=== PATIENT | male | born 1970 | race Caucasian/White ===

== ENCOUNTER 2021-12-01 08:58 | Emergency (ER) | payer BC ==
[~2021-12-01] VITALS: Ht 188 cm; Wt 136.4 kg
[2021-12-01] MEDS ORDERED: dexamethasone sod phosphate 10mg/ml inj IV STA (09:14)
[2021-12-01] MEDS ORDERED: normal saline 1000ML IV soln IV ONE (09:15)
[2021-12-01] MEDS ORDERED: CefTRIAXone 2gm/NS 100ml IVPB 100 ML IV ONE (09:15)
[2021-12-01] MEDS: acetaminophen 325mg tablet PO STA ×2 (09:35→09:36)
--- NOTE | 2021-12-01 09:54 | NUR ---
NS ORDER CHANGED PER SB ROSE. 1 LTR NS BOLUS ONLY.
[2021-12-01] MEDS ORDERED: magnesium 2GM in 50ml NS 50 ML IV ONE (09:55)
[2021-12-01] MEDS ORDERED: ALBUTEROL INHALER 1 PUFF/90 MCG INHALation IH ONE (09:55)
[2021-12-01 10:03] LABS: BASOPHILS % (AUTO) 0.4 % (0-1); EOSINOPHILS % (AUTO) 0.5 % (0-6); HEMATOCRIT 45.2 % (42.0-52.0); HEMOGLOBIN 15.3 g/dl (14.0-17.9); LYMPHOCYTES # (AUTO) 0.8 X10'3 (1.1-4.8); LYMPHOCYTES % (AUTO) 8.5 % (21-51); MEAN CORPUSCULAR HEMOGLOBIN 28.7 PG (27.0-31.0); MEAN CORPUSCULAR HGB CONC 33.8 g/dL (33.0-36.5); MEAN PLATELET VOLUME 8.1 FL (7.4-10.4); MONOCYTES # (AUTO) 0.9 X10'3 (0-0.9); NEUTROPHILS % (AUTO) 81.6 % (42-75); PLATELET COUNT 187 X10'3 (140-440); RED BLOOD COUNT 5.32 X10'6 (4.70-6.10); WHITE BLOOD COUNT 9.8 X10'3 (4.5-11.0)
[2021-12-01 10:09] LABS: D-DIMER 0.79 MG/L FEU (0-0.50)
[2021-12-01 10:12] LABS: ANION GAP 10 (8-16); BILIRUBIN,TOTAL 0.5 MG/DL (0.1-1.0); BLOOD UREA NITROGEN 13 MG/DL (7-18); BUN/CREATININE RATIO 10.5 (5.4-32.0); C-REACTIVE PROTEIN 4.44 MG/DL (0.0-0.5); CHLORIDE 103 MMOL/L (99-107); CREATININE 1.24 MG/DL (0.60-1.10); GLUCOSE 155 MG/DL (70-104); POTASSIUM 4.1 MMOL/L (3.5-5.1); SODIUM 141 MMOL/L (135-145); TOTAL CARBON DIOXIDE 28.2 MMOL/L (24-32); eGFR 61 ML/MIN
[2021-12-01 10:14] LABS: ALANINE AMINOTRANSFERASE 18 U/L (12-78); ALBUMIN 3.7 G/DL (3.4-5.0); ALBUMIN/GLOBULIN RATIO 0.8 (1.1-1.5); ALKALINE PHOSPHATASE 82 IU/L (46-116); ASPARTATE AMINO TRANSFERASE 15 U/L (10-37); CALCIUM 8.7 MG/DL (8.5-10.1); TOTAL PROTEIN 8.4 G/DL (6.4-8.2)
[2021-12-01] MEDS ORDERED: BEBTELOVIMAB 175 MG/2 ML VIAL IV ONE (10:30)
[2021-12-01] MEDS ORDERED: cloNIDine 0.1 mg tablet PO ONE (10:45)
[2021-12-01] MEDS ORDERED: ALBU6.7H9 INH (10:48)
[2021-12-01] MEDS ORDERED: ONDA4TAB12 PO (10:48)
[2021-12-01] MEDS ORDERED: LEVO500T90 PO (10:48)
[2021-12-01] MEDS ORDERED: DEXA4TAB67 PO (10:48)
[2021-12-01] MEDS ORDERED: BUDE180A INH (10:48)
[2021-12-01] MEDS ORDERED: ipratropium/albuterol 3ml nebule NEB ONE (12:20)
[2021-12-01] MEDS ORDERED: ipratropium/albuterol 3ml nebule ONE (12:27)
[2021-12-01 14:17] VITALS: BP 143/65
== END 2021-12-01 14:30 | disposition home or self-care (01) ==
LOC: ER 08:58 → EEVIPCON 08:58 → ER 14:30
DX: U07.1 COVID-19 (principal); J12.82 Pneumonia due to coronavirus disease 2019; I10 Essential (primary) hypertension; Z90.49 Acquired absence of other specified parts of digestive tract; Z98.890 Other specified postprocedural states; Z79.899 Other long term (current) drug therapy; Z88.8 Allergy status to other drugs, medicaments and biological substances
CPT/HCPCS: 36415; 71045; 80053; 83605; 84145; 85025; 85379; 86140; 87040; 87502; 87503; 87635; 93005; 94640; 96365; 96367; 96375; 99285; C9803; J0696; J1100; J3475; J7030; M0222; Q0222; 94760; A4615

== ENCOUNTER 2022-02-01 12:28 | Outpatient (CLI) | payer BC ==
[~2022-02-01 12:28] MED LIST: ALBU6.7H9 INH; BUDE180A INH; DEXA4TAB67 PO; ONDA4TAB12 PO
[2022-02-01] MEDS ORDERED: LISI5TAB22 PO (13:21)
[2022-02-01 13:54] LABS: CLARITY,URINE CLEAR (Clear); COLOR,URINE YELLOW (Yellow); GLUCOSE, URINE NEGATIVE (Neg); KETONES,URINE TRACE mg/dl (Neg); LEUKOCYTE ESTERASE ,URINE NEGATIVE (Neg); NITRITES, URINE NEGATIVE (Neg); OCCULT BLOOD,URINE NEGATIVE (Neg); PH,URINE 5.5 (4.8-8.0); PROTEIN,URINE NEGATIVE (Neg); UROBILINOGEN,URINE 0.2 E.U/dL (0.2-1.0)
[2022-02-01 13:57] LABS: UA COLLECTION TYPE CLN CATCH MIDSTREAM
[2022-02-01 14:00] LABS: BASOPHILS # (AUTO) 0.1 X10'3 (0-0.2); BASOPHILS % (AUTO) 0.8 % (0-1); EOSINOPHILS # (AUTO) 0.2 X10'3 (0-0.9); EOSINOPHILS % (AUTO) 3.4 % (0-6); LYMPHOCYTES # (AUTO) 1.9 X10'3 (1.1-4.8); LYMPHOCYTES % (AUTO) 28.3 % (21-51); MEAN CORPUSCULAR HEMOGLOBIN 29.4 PG (27.0-31.0); MEAN CORPUSCULAR HGB CONC 34.3 g/dL (33.0-36.5); MEAN CORPUSCULAR VOLUME 85.5 FL (78-98); MEAN PLATELET VOLUME 9.1 FL (7.4-10.4); MONOCYTES # (AUTO) 0.6 X10'3 (0-0.9); MONOCYTES % (AUTO) 8.9 % (2-12); NEUTROPHILS # (AUTO) 3.9 X10'3 (1.8-7.7); NEUTROPHILS % (AUTO) 58.6 % (42-75); PRE OP HEMATOCRIT 42.7 % (42.0-52.0); PRE OP HEMOGLOBIN 14.7 g/dL (14.0-17.9); PRE OP PLATELET COUNT 200 X10'3 (140-440); RED CELL DISTRIBUTION WIDTH 14.1 % (11.5-14.5)
[2022-02-01 14:11] LABS: ALBUMIN 3.4 G/DL (3.4-5.0); ALBUMIN/GLOBULIN RATIO 0.8 (1.1-1.5); ALKALINE PHOSPHATASE 87 IU/L (46-116); BLOOD UREA NITROGEN 19 MG/DL (7-18); BUN/CREATININE RATIO 15.2 (5.4-32.0); CALCIUM 8.9 MG/DL (8.5-10.1); CHLORIDE 103 MMOL/L (99-107); CREATININE 1.25 MG/DL (0.60-1.10); PRE OP ALT 32 U/L (30-65); PRE OP ANION GAP 10 (8-16); PRE OP AST 20 U/L (10-37); PRE OP BILIRUB, TOTAL 0.2 MG/DL (0.0-1.0); PRE OP POTASSIUM 4.3 MMOL/L (3.4-5.1); PRE OP SODIUM 138 MMOL/L (135-145); TOTAL CARBON DIOXIDE 25.3 MMOL/L (24-32); TOTAL PROTEIN 7.9 G/DL (6.4-8.2); eGFR 61 ML/MIN
[2022-02-01 14:12] LABS: PRE OP GLUCOSE 305 MG/DL (70-104)
[2022-02-01 15:25] LABS: HEMOGLOBIN A1C 8.6 % (4.5-6.2)
== END 2022-02-01 23:59 | disposition home or self-care (01) ==
LOC: LAB 12:28 → EDSTATUS 02-06 13:15
PROVIDERS: ATTEND Surgery
DX: K42.9 Umbilical hernia without obstruction or gangrene (principal)
CPT/HCPCS: 36415; 80053; 81003; 83036; 85025; 87811

== ENCOUNTER 2022-04-04 05:35 | Emergency (ER) | payer BC ==
[~2022-04-04] VITALS: Ht 188 cm; Wt 143.0 kg
[~2022-04-04 05:35] MED LIST changes: -ALBU6.7H9 INH; -BUDE180A INH; -DEXA4TAB67 PO; +LISI5TAB22 PO; -ONDA4TAB12 PO
[2022-04-04 05:44] VITALS: BP 200/110
== END 2022-04-04 06:50 | disposition home or self-care (01) ==
LOC: ER 05:36
DX: K42.0 Umbilical hernia with obstruction, without gangrene (principal); Z90.49 Acquired absence of other specified parts of digestive tract; Z98.890 Other specified postprocedural states; Z88.8 Allergy status to other drugs, medicaments and biological substances
CPT/HCPCS: 99281

== ENCOUNTER 2022-09-25 20:42 | Inpatient (IN) | payer BC ==
[~2022-09-25] VITALS: Ht 188 cm; Wt 140.0 kg
[2022-09-25 21:05] LABS: BASOPHILS # (AUTO) 0.1 X10'3 (0-0.2); BASOPHILS % (AUTO) 0.7 % (0-1); EOSINOPHILS # (AUTO) 0.1 X10'3 (0-0.9); EOSINOPHILS % (AUTO) 1.5 % (0-6); HEMATOCRIT 43.2 % (42.0-52.0); HEMOGLOBIN 14.7 g/dl (14.0-17.9); LYMPHOCYTES # (AUTO) 1.6 X10'3 (1.1-4.8); LYMPHOCYTES % (AUTO) 20.6 % (21-51); MEAN CORPUSCULAR HEMOGLOBIN 29.5 PG (27.0-31.0); MEAN CORPUSCULAR HGB CONC 34.1 g/dL (33.0-36.5); MEAN CORPUSCULAR VOLUME 86.4 FL (78-98); MEAN PLATELET VOLUME 8.6 FL (7.4-10.4); MONOCYTES # (AUTO) 0.7 X10'3 (0-0.9); MONOCYTES % (AUTO) 8.3 % (2-12); NEUTROPHILS # (AUTO) 5.5 X10'3 (1.8-7.7); NEUTROPHILS % (AUTO) 68.9 % (42-75); PLATELET COUNT 203 X10'3 (140-440); RED CELL DISTRIBUTION WIDTH 13.8 % (11.5-14.5)
[2022-09-25 21:20] LABS: ALANINE AMINOTRANSFERASE 34 U/L (12-78); ALBUMIN 3.5 G/DL (3.4-5.0); ALBUMIN/GLOBULIN RATIO 0.9 (1.1-1.5); ALKALINE PHOSPHATASE 105 IU/L (46-116); ANION GAP 11 (8-16); ASPARTATE AMINO TRANSFERASE 11 U/L (10-37); BILIRUBIN,TOTAL 0.4 MG/DL (0.1-1.0); BLOOD UREA NITROGEN 19 MG/DL (7-18); BUN/CREATININE RATIO 13.6 (10.0-20.0); CALCIUM 8.3 MG/DL (8.5-10.1); CHLORIDE 102 MMOL/L (99-107); SODIUM 135 MMOL/L (135-145); TOTAL CARBON DIOXIDE 22.3 MMOL/L (24-32); TOTAL PROTEIN 7.4 G/DL (6.4-8.2); eGFR 53 ML/MIN
[2022-09-25 21:31] LABS: POTASSIUM 4.1 MMOL/L (3.5-5.1)
[2022-09-25 21:32] LABS: GLUCOSE 490 MG/DL (70-104)
--- NOTE | 2022-09-25 22:08 | NUR ---
stroke RN at bedside tele monitor in front of patient
[2022-09-25] MEDS ORDERED: normal saline 1000ml 1,000 ML IV ONE (22:10)
[2022-09-25] MEDS ORDERED: meclizine 12.5mg tablet PO ONE (22:10)
[2022-09-25] MEDS ORDERED: iohexol 350MG/ML 100ml bottle IV ONE (22:15)
[2022-09-25] MEDS ORDERED: DULA1.5P SQ (23:53)
[2022-09-26] MEDS ORDERED: acetaminophen 325mg tablet PO ONE (00:30)
[2022-09-26 00:53] LABS: CLARITY,URINE CLEAR (Clear); COLOR,URINE YELLOW (Yellow); GLUCOSE, URINE >=1000 mg/dl (Neg); KETONES,URINE NEGATIVE (Neg); LEUKOCYTE ESTERASE ,URINE NEGATIVE (Neg); NITRITES, URINE NEGATIVE (Neg); OCCULT BLOOD,URINE NEGATIVE (Neg); PROTEIN,URINE NEGATIVE (Neg); UROBILINOGEN,URINE 0.2 E.U/dL (0.2-1.0)
[2022-09-26 00:57] LABS: UA COLLECTION TYPE CLN CATCH MIDSTREAM
[2022-09-26 01:18] LABS: RBC,URINE 0-2 /HPF (0-2); WBC,URINE 0-4 /HPF (0-4)
[2022-09-26 01:19] LABS: BACTERIA,URINE NONE SEEN /HPF (Neg); MUCUS STRANDS FEW /LPF (Neg); SQUAMOUS EPITHELIAL CELL,UR NONE SEEN /LPF (FEW)
[2022-09-26] MEDS ORDERED: mag hydrox/Alum hydrox/simeth 30ml oral suspension PO PRN (03:15)
[2022-09-26] MEDS ORDERED: acetaminophen 325mg tablet PO PRN (03:15)
[2022-09-26] MEDS ORDERED: PERFLUTREN PROTEIN-A MICROSPHR (Optison) 0.22 MG/ML 3ML VIAL IV PRN (03:15)
[2022-09-26] MEDS ORDERED: magnesium hydroxide 30ml (MOM) UD suspension PO PRN (03:15)
[2022-09-26] MEDS ORDERED: ondansetron/PF 4mg/2ml inj IV PRN (03:15)
[2022-09-26] MEDS ORDERED: glucagon, human recombinant 1mg kit SUBCUT PRN (03:20)
[2022-09-26] MEDS ORDERED: MESSAGE TO PHARMACY PO ONE (03:20)
[2022-09-26] MEDS ORDERED: aspirin 81mg, enteric-coated 1 TAB TABLET.DR PO ONE (03:20)
[2022-09-26] MEDS ORDERED: DEXTROSE 15 GM of carb/4 tabs (each vial/BOTTLE has 4 tablets) PO PRN ×2 (03:20)
[2022-09-26] MEDS ORDERED: dextrose 50%-water 50ml dispensing syringe IV PRN ×2 (03:20)
[2022-09-26 04:10] LABS: HEMOGLOBIN A1C 10.3 % (4.5-6.2)
[2022-09-26 04:11] LABS: CHOL/HDL RATIO 6.3 (0.00-4.99); CHOLESTEROL 177 MG/DL (0-200); HDL CHOLESTEROL 28 MG/DL (35-60); LDL CHOLESTEROL 100 MG/DL (50-100); TRIGLYCERIDES 271 MG/DL (20-135)
[2022-09-26] MEDS ORDERED: docusate sod 100mg capsule PO SCH (08:00)
[2022-09-26] MEDS ORDERED: aspirin 81mg, enteric-coated 1 TAB TABLET.DR PO SCH (08:00)
[2022-09-26] MEDS: insulin Lispro (HumaLOG) vial - multi-dose SQ SCH ×2 (09:27→12:54)
[2022-09-26] MEDS ORDERED: LISI40TA13 PO (15:36)
[2022-09-26] MEDS ORDERED: ATOR40TA PO (15:36)
[2022-09-26 16:02] VITALS: BP 134/78
== END 2022-09-26 16:09 | disposition home or self-care (01) | DRG 149 ==
LOC: ER 20:42 → ED HOLD 09-26 03:20 → UNDOADMIN 09-26 03:22 → UNDODISIN 09-26 16:09
PROVIDERS: ADMIT Internal Medicine; ATTEND Family Medicine
PROC: B3251ZZ Computerized Tomography (CT Scan) of Bilateral Common Carotid Arteries using Low Osmolar Contrast (ICD-10-PCS; principal; 2022-09-25)
PROC: B32G1ZZ Computerized Tomography (CT Scan) of Bilateral Vertebral Arteries using Low Osmolar Contrast (ICD-10-PCS; 2022-09-25)
PROC: B32R1ZZ Computerized Tomography (CT Scan) of Intracranial Arteries using Low Osmolar Contrast (ICD-10-PCS; 2022-09-25)
PROC: B3281ZZ Computerized Tomography (CT Scan) of Bilateral Internal Carotid Arteries using Low Osmolar Contrast (ICD-10-PCS; 2022-09-25)
DX: H81.13 Benign paroxysmal vertigo, bilateral (principal); G43.909 Migraine, unspecified, not intractable, without status migrainosus; M10.9 Gout, unspecified; E78.5 Hyperlipidemia, unspecified; E11.22 Type 2 diabetes mellitus with diabetic chronic kidney disease; I12.9 Hypertensive chronic kidney disease with stage 1 through stage 4 chronic kidney disease, or unspecified chronic kidney disease; N18.9 Chronic kidney disease, unspecified; R26.9 Unspecified abnormalities of gait and mobility; Z79.82 Long term (current) use of aspirin; Z88.8 Allergy status to other drugs, medicaments and biological substances; Z90.49 Acquired absence of other specified parts of digestive tract; Z86.16 Personal history of COVID-19; Z79.899 Other long term (current) drug therapy
CPT/HCPCS: 36415; 70450; 70496; 70498; 70551; 71045; 80053; 80061; 81001; 82948; 83036; 83880; 84484; 85025; 92508; 92616; 93306; 99285; G0378; J3490; J7030; Q9967

== ENCOUNTER 2023-04-21 06:39 | Outpatient (CLI) | payer BC ==
[~2023-04-21 06:39] MED LIST changes: +DULA1.5P SQ; -LISI5TAB22 PO
[2023-04-21 07:18] LABS: BASOPHILS # (AUTO) 0.1 X10'3 (0-0.2); EOSINOPHILS # (AUTO) 0.2 X10'3 (0-0.9); EOSINOPHILS % (AUTO) 1.9 % (0-6); HEMATOCRIT 43.4 % (42.0-52.0); HEMOGLOBIN 14.7 g/dl (14.0-17.9); LYMPHOCYTES # (AUTO) 2.1 X10'3 (1.1-4.8); LYMPHOCYTES % (AUTO) 23.8 % (21-51); MEAN CORPUSCULAR HEMOGLOBIN 29.4 PG (27.0-31.0); MEAN CORPUSCULAR HGB CONC 33.9 g/dL (33.0-36.5); MEAN CORPUSCULAR VOLUME 86.9 FL (78-98); MEAN PLATELET VOLUME 8.5 FL (7.4-10.4); MONOCYTES # (AUTO) 0.7 X10'3 (0-0.9); MONOCYTES % (AUTO) 8.2 % (2-12); NEUTROPHILS # (AUTO) 5.7 X10'3 (1.8-7.7); NEUTROPHILS % (AUTO) 65.1 % (42-75); PLATELET COUNT 207 X10'3 (140-440); RED BLOOD COUNT 4.99 X10'6 (4.70-6.10); RED CELL DISTRIBUTION WIDTH 13.7 % (11.5-14.5); WHITE BLOOD COUNT 8.7 X10'3 (4.5-11.0)
[2023-04-21 07:55] LABS: ALANINE AMINOTRANSFERASE 19 U/L (12-78); ALBUMIN 3.7 G/DL (3.4-5.0); ALBUMIN/GLOBULIN RATIO 0.7 (1.1-1.5); ALKALINE PHOSPHATASE 71 IU/L (46-116); ANION GAP 10 (8-16); ASPARTATE AMINO TRANSFERASE 21 U/L (10-37); BILIRUBIN,TOTAL 0.3 MG/DL (0.1-1.0); BLOOD UREA NITROGEN 19 MG/DL (7-18); BUN/CREATININE RATIO 15.4 (10.0-20.0); CALCIUM 9.3 MG/DL (8.5-10.1); CHLORIDE 105 MMOL/L (99-107); CHOL/HDL RATIO 4.7 (0.00-4.99); CHOLESTEROL 149 MG/DL (0-200); CREATININE 1.23 MG/DL (0.60-1.10); GLUCOSE 146 MG/DL (70-104); HDL CHOLESTEROL 32 MG/DL (35-60); LDL CHOLESTEROL 87 MG/DL (50-100); POTASSIUM 3.7 MMOL/L (3.5-5.1); SODIUM 140 MMOL/L (135-145); TOTAL CARBON DIOXIDE 24.7 MMOL/L (24-32); TOTAL PROTEIN 8.8 G/DL (6.4-8.2); TRIGLYCERIDES 230 MG/DL (20-135); eGFR 61 ML/MIN
== END 2023-04-21 23:59 | disposition home or self-care (01) ==
LOC: LAB 06:39
PROVIDERS: ATTEND Physician Assistant
DX: E11.65 Type 2 diabetes mellitus with hyperglycemia (principal); I10 Essential (primary) hypertension; E78.5 Hyperlipidemia, unspecified
CPT/HCPCS: 36415; 80053; 80061; 85025

== ENCOUNTER 2023-04-29 02:09 | Emergency (ER) | payer BC ==
[~2023-04-29] VITALS: Ht 188 cm; Wt 143.2 kg
[2023-04-29 02:13] VITALS: BP 122/75; TEMP 98.1
[2023-04-29] MEDS ORDERED: ipratropium/albuterol 3ml nebule NEB ONE (02:15)
[2023-04-29] MEDS ORDERED: dexamethasone 4mg/ml inj IM ONE (02:20)
[2023-04-29 02:26] VITALS: PULSE 97; RESP 16
[2023-04-29 02:32] VITALS: PULSE 70; RESP 16; O2SAT 97
[2023-04-29] MEDS ORDERED: ALBU18HF2 INH (03:37)
--- NOTE | 2023-04-29 06:35 | NUR ---
PT DISCHARGED AT 1457, JUST NOW TAKEN OUT OF COMPUTER.
== END 2023-04-29 06:34 | disposition home or self-care (01) ==
LOC: ER 02:10
DX: J45.909 Unspecified asthma, uncomplicated (principal); R06.02 Shortness of breath; E11.9 Type 2 diabetes mellitus without complications; Z88.8 Allergy status to other drugs, medicaments and biological substances; Z79.899 Other long term (current) drug therapy; Z90.49 Acquired absence of other specified parts of digestive tract
CPT/HCPCS: 94640; 96372; 99283; J1100; 94760; A4620

== ENCOUNTER 2023-09-28 18:22 | Emergency (ER) | payer BC ==
[~2023-09-28] VITALS: Ht 188 cm; Wt 88.2 kg
[~2023-09-28 18:22] MED LIST changes: +ALBU18HF2 INH
[2023-09-28 18:35] VITALS: BP 135/98; PULSE 103; RESP 16; TEMP 98.3; O2SAT 98
[2023-09-28] MEDS ORDERED: PRED20TA PO (18:43)
[2023-09-28] MEDS ORDERED: AMOX-100 PO (18:43)
[2023-09-28] MEDS: CefTRIAXone 1000mg IM Kit (w/lidocaine diluent) IM ONE (18:45)
[2023-09-28] MEDS: dexamethasone sod phosphate 10mg/ml inj IM STA (18:45)
== END 2023-09-28 19:00 | disposition home or self-care (01) ==
LOC: ER 18:23
DX: J03.90 Acute tonsillitis, unspecified (principal); E11.9 Type 2 diabetes mellitus without complications; Z90.49 Acquired absence of other specified parts of digestive tract; Z98.890 Other specified postprocedural states; Z88.8 Allergy status to other drugs, medicaments and biological substances; Z79.899 Other long term (current) drug therapy
CPT/HCPCS: 96372; 99284; J0696; J1100

== ENCOUNTER 2023-10-14 06:30 | Outpatient (CLI) | payer BC ==
[2023-10-14 06:51] LABS: BASOPHILS # (AUTO) 0.1 X10'3 (0-0.2); BASOPHILS % (AUTO) 0.8 % (0-1); EOSINOPHILS # (AUTO) 0.2 X10'3 (0-0.9); EOSINOPHILS % (AUTO) 1.6 % (0-6); HEMATOCRIT 40.8 % (42.0-52.0); HEMOGLOBIN 13.5 g/dl (14.0-17.9); LYMPHOCYTES # (AUTO) 2.1 X10'3 (1.1-4.8); LYMPHOCYTES % (AUTO) 21.4 % (21-51); MEAN CORPUSCULAR HEMOGLOBIN 28.3 PG (27.0-31.0); MEAN CORPUSCULAR HGB CONC 33.1 g/dL (33.0-36.5); MEAN CORPUSCULAR VOLUME 85.5 FL (78-98); MEAN PLATELET VOLUME 7.6 FL (7.4-10.4); MONOCYTES # (AUTO) 0.7 X10'3 (0-0.9); MONOCYTES % (AUTO) 7.4 % (2-12); NEUTROPHILS # (AUTO) 6.6 X10'3 (1.8-7.7); NEUTROPHILS % (AUTO) 68.8 % (42-75); PLATELET COUNT 229 X10'3 (140-440); RED BLOOD COUNT 4.78 X10'6 (4.70-6.10); RED CELL DISTRIBUTION WIDTH 14.2 % (11.5-14.5); WHITE BLOOD COUNT 9.6 X10'3 (4.5-11.0)
[2023-10-14 07:04] LABS: ALANINE AMINOTRANSFERASE 10 U/L (12-78); ALBUMIN 3.4 G/DL (3.4-5.0); ALBUMIN/GLOBULIN RATIO 0.7 (1.1-1.5); ALKALINE PHOSPHATASE 63 IU/L (46-116); ANION GAP 10 (8-16); ASPARTATE AMINO TRANSFERASE 6 U/L (10-37); BILIRUBIN,TOTAL 0.4 MG/DL (0.1-1.0); BLOOD UREA NITROGEN 22 MG/DL (7-18); BUN/CREATININE RATIO 17.9 (10.0-20.0); CALCIUM 8.7 MG/DL (8.5-10.1); CHLORIDE 108 MMOL/L (99-107); CHOL/HDL RATIO 4.3 (0.00-4.99); CHOLESTEROL 124 MG/DL (0-200); CREATININE 1.23 MG/DL (0.60-1.10); GLUCOSE 115 MG/DL (70-104); HDL CHOLESTEROL 29 MG/DL (35-60); LDL CHOLESTEROL 83 MG/DL (50-100); POTASSIUM 3.9 MMOL/L (3.5-5.1); SODIUM 142 MMOL/L (135-145); TOTAL CARBON DIOXIDE 23.7 MMOL/L (24-32); TOTAL PROTEIN 8.2 G/DL (6.4-8.2); TRIGLYCERIDES 120 MG/DL (20-135); eGFR 61 ML/MIN
[2023-10-17] MEDS ORDERED: TIRZ7.5P SQ (09:47)
[2023-10-17] MEDS ORDERED: EMPA25TA PO (09:47)
== END 2023-10-14 23:59 | disposition home or self-care (01) ==
LOC: LAB 06:30
PROVIDERS: ATTEND Physician Assistant
DX: E11.65 Type 2 diabetes mellitus with hyperglycemia (principal); I10 Essential (primary) hypertension; E78.5 Hyperlipidemia, unspecified
CPT/HCPCS: 36415; 80053; 80061; 85025

== ENCOUNTER 2023-10-23 09:12 | Day surgery (SDC) | payer BC ==
[2023-10-21] MEDS: cefazolin 2gm/D5W 100mL 100 ML IV ONE (05:30)
[2023-10-21] MEDS: famotidine 20mg tablet PO ONE (05:30)
[2023-10-21] MEDS: ringers solution, lacted 1,000 ML IV SCH (05:30)
[2023-10-23] VITALS (15 sets, daily range): BP systolic 141–180; BP diastolic 74–105; PULSE 49–64; RESP 12–21; TEMP 97–97.2; O2SAT 92–97
[~2023-10-23] VITALS: Ht 167.6 cm; Wt 134.0 kg
[2023-10-23] MEDS: famotidine 20mg tablet PO ONE (05:30)
[2023-10-23] MEDS: cefazolin 2gm/D5W 100mL 100 ML IV ONE (05:30)
[~2023-10-23 09:12] MED LIST changes: -ALBU18HF2 INH; -DULA1.5P SQ; +EMPA25TA PO; +TIRZ7.5P SQ
[2023-10-23] MEDS: ringers solution, lacted 1,000 ML IV SCH (10:02)
[2023-10-23] MEDS ORDERED: BUPIVAcaine 0.25% w/Epi /PF 30ml vial ONE (11:36)
[2023-10-23 12:01] LABS: BILIRUBIN,URINE NEGATIVE (Neg); CLARITY,URINE CLEAR (Clear); COLOR,URINE YELLOW (Yellow); GLUCOSE, URINE >=1000 mg/dl (Neg); KETONES,URINE NEGATIVE (Neg); LEUKOCYTE ESTERASE ,URINE NEGATIVE (Neg); NITRITES, URINE NEGATIVE (Neg); OCCULT BLOOD,URINE NEGATIVE (Neg); PH,URINE 5.5 (4.8-8.0); PROTEIN,URINE NEGATIVE (Neg); UROBILINOGEN,URINE 0.2 E.U/dL (0.2-1.0)
[2023-10-23 12:05] LABS: UA COLLECTION TYPE CLN CATCH MIDSTREAM
[2023-10-23] MEDS ORDERED: midazolam 1 mg/ML 2ml injection ONE (12:08)
[2023-10-23] MEDS ORDERED: propofol inj 20 ML IV ONE (12:08)
[2023-10-23] MEDS ORDERED: fentaNYL /PF 50mcg/ml 5ml ampule ONE (12:08)
[2023-10-23] MEDS ORDERED: rocuronium 10mg/ml inj IV ONE (12:09)
[2023-10-23 12:10] LABS: SQUAMOUS EPITHELIAL CELL,UR FEW /LPF (FEW)
[2023-10-23] MEDS ORDERED: BUPIVAcaine 2.5mg/ml inj 50ml vial (contains preservative) ONE (12:10)
[2023-10-23 12:11] LABS: BACTERIA,URINE NONE SEEN /HPF (Neg); RBC,URINE NONE SEEN /HPF (0-2); WBC,URINE 0-4 /HPF (0-4)
[2023-10-23] MEDS ORDERED: sevoflurane 250ml liquid IH ONE (13:18)
[2023-10-23] MEDS ORDERED: ringers solution, lacted 1,000 ML IV SCH (13:20)
[2023-10-23] MEDS ORDERED: morphine 2 MG/ML inj. syringe IV PRN (13:20)
[2023-10-23] MEDS ORDERED: meperidine/PF 25mg/ml syringe IV PRN ×3 (13:20)
[2023-10-23] MEDS ORDERED: morphine 4 MG/ML inj SYRINge IV PRN (13:20)
[2023-10-23] MEDS ORDERED: proCHLORperazine 10 MG/2 ml inj IV PRN (13:20)
[2023-10-23] MEDS: BUPIVAcaine/PF 2.5 mg/ml (0.25%) 30ml vial IJ ONE (13:31)
[2023-10-23] MEDS ORDERED: bacitracin 15gm ointment TP ONE (14:01)
[2023-10-23] MEDS ORDERED: dexamethasone sod phosphate 4mg/ml inj. ONE (14:02)
[2023-10-23] MEDS ORDERED: ondansetron/PF 4mg/2ml inj ONE (14:14)
[2023-10-23] MEDS ORDERED: acetaminophen 1,000mg/100ml IV 100 ML IV ONE (14:14)
[2023-10-23] MEDS ORDERED: glycopyrrolate 0.2mg/ml inj ONE (14:45)
[2023-10-23] MEDS ORDERED: neostigmine methylsulfate 1 MG/ML 10ml vial ONE (14:45)
[2023-10-23] MEDS: bacitracin 15gm ointment TP ONE (14:57)
[2023-10-23] MEDS: ondansetron/PF 4mg/2ml inj IV PRN (15:40)
== END 2023-10-23 17:50 | disposition home or self-care (01) ==
LOC: PAS 09:12
PROVIDERS: ATTEND Surgery
DX: K42.0 Umbilical hernia with obstruction, without gangrene (principal); E11.9 Type 2 diabetes mellitus without complications; Z79.899 Other long term (current) drug therapy; Z98.890 Other specified postprocedural states; Z20.822 Contact with and (suspected) exposure to COVID-19; Z90.49 Acquired absence of other specified parts of digestive tract
CPT/HCPCS: 49592; 81001; 82948; C1781; J0131; J0690; J1100; J2250; J2405; J2704; J2710; J3010; J3490; J7030; J7120; Z7506; Z7508; Z7512; A4615; A4618; A6258; A6449; A7000; S0020

== ENCOUNTER 2023-11-19 09:07 | Emergency (ER) | payer BC ==
[~2023-11-19] VITALS: Ht 188 cm; Wt 131.1 kg
[2023-11-19 10:20] LABS: BASOPHILS # (AUTO) 0.1 X10'3 (0-0.2); BASOPHILS % (AUTO) 0.7 % (0-1); EOSINOPHILS # (AUTO) 0.2 X10'3 (0-0.9); EOSINOPHILS % (AUTO) 2.3 % (0-6); HEMATOCRIT 42.9 % (42.0-52.0); HEMOGLOBIN 14.1 g/dl (14.0-17.9); LYMPHOCYTES # (AUTO) 2.1 X10'3 (1.1-4.8); LYMPHOCYTES % (AUTO) 22.8 % (21-51); MEAN CORPUSCULAR HEMOGLOBIN 28.2 PG (27.0-31.0); MEAN CORPUSCULAR HGB CONC 32.9 g/dL (33.0-36.5); MEAN CORPUSCULAR VOLUME 85.5 FL (78-98); MONOCYTES # (AUTO) 0.7 X10'3 (0-0.9); MONOCYTES % (AUTO) 8.2 % (2-12); PLATELET COUNT 230 X10'3 (140-440); RED BLOOD COUNT 5.02 X10'6 (4.70-6.10); RED CELL DISTRIBUTION WIDTH 14.4 % (11.5-14.5); WHITE BLOOD COUNT 9.1 X10'3 (4.5-11.0)
[2023-11-19 10:27] LABS: PROTHROMBIN TIME 10.6 SECONDS (9.0-12.0)
[2023-11-19 10:32] LABS: ALANINE AMINOTRANSFERASE 15 U/L (12-78); ALBUMIN 3.5 G/DL (3.4-5.0); ALBUMIN/GLOBULIN RATIO 0.7 (1.1-1.5); ALKALINE PHOSPHATASE 79 IU/L (46-116); ANION GAP 6 (8-16); ASPARTATE AMINO TRANSFERASE 13 U/L (10-37); BILIRUBIN,TOTAL 0.6 MG/DL (0.1-1.0); BLOOD UREA NITROGEN 15 MG/DL (7-18); CALCIUM 9.1 MG/DL (8.5-10.1); CHLORIDE 105 MMOL/L (99-107); CREATININE 1.25 MG/DL (0.60-1.10); GLUCOSE 121 MG/DL (70-104); POTASSIUM 3.7 MMOL/L (3.5-5.1); SODIUM 137 MMOL/L (135-145); TOTAL CARBON DIOXIDE 26.5 MMOL/L (24-32); TOTAL PROTEIN 8.2 G/DL (6.4-8.2); URIC ACID 7.1 MG/DL (3.5-7.2); eCRCL 79 ML/MIN; eGFR 60 ML/MIN
[2023-11-19] MEDS ORDERED: ketorolac trometh. 30mg/ml inj. IM ONE (11:55)
[2023-11-19] MEDS ORDERED: COLC0.6C3 PO (11:58)
[2023-11-19] MEDS ORDERED: ALLO100T PO (11:58)
[2023-11-19] MEDS: dexamethasone sod phosphate 10mg/ml inj IM STA (12:30)
[2023-11-19] MEDS: ketorolac tromethamine 15mg/ml inj. IM ONE (12:32)
[2023-11-19 13:32] VITALS: BP 152/103; PULSE 62; RESP 18; TEMP 98.6; O2SAT 98
== END 2023-11-19 13:39 | disposition home or self-care (01) ==
LOC: ER 09:07
DX: R60.0 Localized edema (principal); M79.661 Pain in right lower leg; E11.9 Type 2 diabetes mellitus without complications; Z88.8 Allergy status to other drugs, medicaments and biological substances; Z79.899 Other long term (current) drug therapy; Z90.49 Acquired absence of other specified parts of digestive tract
CPT/HCPCS: 36415; 80053; 84550; 85025; 85610; 93971; 96372; 99285; J1100; J1885

== ENCOUNTER 2024-02-22 14:19 | Emergency (ER) | payer BC ==
[~2024-02-22] VITALS: Ht 188 cm; Wt 130.0 kg
[~2024-02-22 14:19] MED LIST changes: +COLC0.6C3 PO
[2024-02-22] MEDS: predniSONE 20 mg tablet PO ONE (14:36)
[2024-02-22 14:47] VITALS: PULSE 62; RESP 18; O2SAT 97
[2024-02-22] MEDS: ipratropium/albuterol 3ml nebule NEB ONE (14:47)
[2024-02-22 14:56] VITALS: PULSE 66; RESP 18; O2SAT 97
[2024-02-22] MEDS ORDERED: PRED20TA PO (15:08)
[2024-02-22] MEDS ORDERED: ALBU18HF2 INH (15:08)
[2024-02-22] MEDS ORDERED: BUDE10.2 INH (15:08)
[2024-02-22 15:13] VITALS: BP 137/95; PULSE 61; RESP 18; TEMP 98; O2SAT 97
== END 2024-02-22 15:15 | disposition home or self-care (01) ==
LOC: ER 14:19
DX: J40 Bronchitis, not specified as acute or chronic (principal); E11.9 Type 2 diabetes mellitus without complications; Z88.8 Allergy status to other drugs, medicaments and biological substances; Z79.899 Other long term (current) drug therapy; Z90.49 Acquired absence of other specified parts of digestive tract
CPT/HCPCS: 71045; 93005; 94640; 99283; J7512; 94760

== ENCOUNTER 2024-07-18 12:32 | Emergency (ER) | payer BC ==
[~2024-07-18] VITALS: Ht 188 cm; Wt 136.4 kg
[~2024-07-18 12:32] MED LIST changes: +ALBU18HF2 INH; +BUDE10.2 INH
[2024-07-18 12:34] VITALS: BP 131/98; PULSE 72; O2SAT 95
[2024-07-18 12:55] LABS: BASOPHILS % (AUTO) 0.4 % (0-1); EOSINOPHILS # (AUTO) 0.2 X10'3 (0-0.9); HEMATOCRIT 46.7 % (42.0-52.0); HEMOGLOBIN 15.8 g/dl (14.0-17.9); LYMPHOCYTES # (AUTO) 1.2 X10'3 (1.1-4.8); LYMPHOCYTES % (AUTO) 17.4 % (21-51); MEAN CORPUSCULAR HEMOGLOBIN 29.8 PG (27.0-31.0); MEAN CORPUSCULAR HGB CONC 33.8 g/dL (33.0-36.5); MEAN PLATELET VOLUME 7.9 FL (7.4-10.4); MONOCYTES # (AUTO) 0.8 X10'3 (0-0.9); MONOCYTES % (AUTO) 11.4 % (2-12); NEUTROPHILS # (AUTO) 4.6 X10'3 (1.8-7.7); NEUTROPHILS % (AUTO) 67.8 % (42-75); PLATELET COUNT 168 X10'3 (140-440); RED CELL DISTRIBUTION WIDTH 13.8 % (11.5-14.5); WHITE BLOOD COUNT 6.7 X10'3 (4.5-11.0)
[2024-07-18] MEDS ORDERED: iohexol 300mg/ml 100ml inj. ONE (13:00)
[2024-07-18] MEDS: normal saline 1000ml 1,000 ML IV ONE (13:03)
[2024-07-18] MEDS: metoclopramide 5 mg/ml inj IV ONE (13:27)
[2024-07-18 13:35] LABS: ALANINE AMINOTRANSFERASE 30 U/L (12-78); ALBUMIN 3.3 G/DL (3.4-5.0); ALBUMIN/GLOBULIN RATIO 0.8 (1.1-1.5); ALKALINE PHOSPHATASE 90 IU/L (46-116); ANION GAP 11 (8-16); ASPARTATE AMINO TRANSFERASE 22 U/L (10-37); BILIRUBIN,TOTAL 0.6 MG/DL (0.1-1.0); BLOOD UREA NITROGEN 16 MG/DL (7-18); BUN/CREATININE RATIO 16.8 (10.0-20.0); CALCIUM 8.1 MG/DL (8.5-10.1); CHLORIDE 108 MMOL/L (99-107); CREATININE 0.95 MG/DL (0.60-1.10); GLUCOSE 136 MG/DL (70-104); LIPASE 23 U/L (16-77); POTASSIUM 3.7 MMOL/L (3.5-5.1); SODIUM 140 MMOL/L (135-145); TOTAL CARBON DIOXIDE 21.4 MMOL/L (24-32); TOTAL PROTEIN 7.7 G/DL (6.4-8.2); eCRCL 102 ML/MIN; eGFR 82 ML/MIN
[2024-07-18 14:33] VITALS: RESP 16
[2024-07-18] MEDS: metroNIDAZOLE 500mg tablet PO ONE (14:33)
[2024-07-18] MEDS: ciprofloxacin 250mg tablet PO ONE (14:33)
[2024-07-18] MEDS: ketorolac trometh 15mg/ml vial 15 MG/ML ML IV ONE (14:33)
[2024-07-18] MEDS ORDERED: CIPR-202 PO (15:17)
[2024-07-18] MEDS ORDERED: METR-159 PO (15:17)
[2024-07-18] MEDS ORDERED: HYDR-3965 PO (15:17)
[2024-07-18] MEDS ORDERED: ONDA-243 PO (15:17)
[2024-07-18 15:24] LABS: BILIRUBIN,URINE NEGATIVE (Neg); CLARITY,URINE CLEAR (Clear); COLOR,URINE YELLOW (Yellow); GLUCOSE, URINE NEGATIVE (Neg); KETONES,URINE NEGATIVE (Neg); LEUKOCYTE ESTERASE ,URINE NEGATIVE (Neg); NITRITES, URINE NEGATIVE (Neg); OCCULT BLOOD,URINE NEGATIVE (Neg); PH,URINE 5.5 (4.8-8.0); PROTEIN,URINE NEGATIVE (Neg); UROBILINOGEN,URINE 0.2 E.U/dL (0.2-1.0)
[2024-07-18 15:25] LABS: UA COLLECTION TYPE CLN CATCH MIDSTREAM
[2024-07-18 15:35] VITALS: TEMP 98
== END 2024-07-18 15:39 | disposition home or self-care (01) ==
LOC: ER 12:33
DX: K57.32 Diverticulitis of large intestine without perforation or abscess without bleeding (principal); E11.9 Type 2 diabetes mellitus without complications; Z88.8 Allergy status to other drugs, medicaments and biological substances; Z90.49 Acquired absence of other specified parts of digestive tract; Z98.890 Other specified postprocedural states
CPT/HCPCS: 36415; 74177; 80053; 81003; 83690; 85025; 96361; 96374; 96375; 99285; J1885; J2765; J7030; Q9967

== ENCOUNTER 2025-02-03 14:56 | Outpatient (CLI) | payer BC ==
[~2025-02-03 14:56] MED LIST changes: +ONDA-243 PO
[2025-02-03 16:08] LABS: CHOL/HDL RATIO 5.6 (0.00-4.99); CREATININE 1.10 MG/DL (0.60-1.10); LDL CHOLESTEROL 120 MG/DL (50-100); TOTAL CARBON DIOXIDE 28.4 MMOL/L (24-32); eGFR 69 ML/MIN
== END 2025-02-03 23:59 | disposition home or self-care (01) ==
LOC: LAB 14:56
PROVIDERS: ATTEND Internal Medicine Interventional Cardiology
DX: E78.5 Hyperlipidemia, unspecified (principal); I48.0 Paroxysmal atrial fibrillation
CPT/HCPCS: 36415; 80053; 80061; 83695; 83735; 84439; 84443